=== PATIENT | female | born 1985 | race Caucasian/White ===

== ENCOUNTER 2022-02-16 06:43 | Day surgery (SDCO) | payer OTHER ==
[~2022-02-16] VITALS: Ht 162.6 cm; Wt 107.3 kg
[~2022-02-16 06:43] MED LIST: MIRALAX17 GM PO
[2022-02-16 07:47] LABS: BILIRUBIN NEGATIVE (NEGATIVE); BLOOD NEGATIVE Ery/uL (NEGATIVE); CLARITY CLEAR (CLEAR); COLOR YELLOW (YELLOW); GLUCOSE (U) NORMAL (NORMAL); LEUKOCYTES NEGATIVE Leu/uL (NEGATIVE); NITRITE NEGATIVE (NEGATIVE); PROTEIN NEGATIVE (NEGATIVE)
[2022-02-16 07:47] LABS: BASOPHIL 0.7 % (0-2); EOSINOPHIL 0.2 % (0-5); HCT 36.9 % (37.0-47.0); HGB 12.2 g/dl (12.5-16.0); LYMPHOCYTE 11.5 % (15-48); MCH 27.9 pg (25.0-31.0); MCHC 33.1 g/dL (32.0-36.0); MCV 84.2 fL (78.0-100.0); MONOCYTE 4.6 % (0-12); MPV 9.3 fL (6.0-9.5); NEUTROPHIL 82.6 % (41-80); NRBC 0; PLT 338 K/uL (150-400); RBC 4.38 M/uL (4.20-5.40); RDW 15.1 % (11.5-14.0); WBC 8.4 K/uL (4.0-10.5)
[2022-02-16 08:04] LABS: ALBUMIN 3.6 g/dL (3.4-5.0); BILIRUBIN - TOTAL 0.3 mg/dL (0.2-1.0); BUN/CREAT RATIO (CALC) 14.1 RATIO; CREATININE 0.71 mg/dL (0.51-0.95); GLOBULIN (CALCULATION) 3.7 g/dL; MAGNESIUM 1.9 mg/dL (1.8-2.4); POTASSIUM 3.6 mmol/L (3.5-5.1); TOTAL PROTEIN 7.3 g/dL (6.4-8.2)
[2022-02-16 08:25] LABS: CORONAVIRUS 2019 SARS-COV-2 NEGATIVE (NEGATIVE); INFLUENZA A NAA NEGATIVE (NEGATIVE)
[2022-02-16] MEDS ORDERED: EFFEXOR-XR 75 M75 MG PO (15:21)
[2022-02-17 06:39] LABS: BASOPHIL 0.2 % (0-2); EOSINOPHIL 0.1 % (0-5); HCT 33.1 % (37.0-47.0); HGB 10.6 g/dl (12.5-16.0); LYMPHOCYTE 13.8 % (15-48); MCH 27.5 pg (25.0-31.0); MPV 9.2 fL (6.0-9.5); NEUTROPHIL 80.4 % (41-80); NRBC 0; PLT 294 K/uL (150-400); RBC 3.85 M/uL (4.20-5.40); RDW 15.5 % (11.5-14.0); WBC 10.6 K/uL (4.0-10.5)
[2022-02-17 07:12] LABS: ALBUMIN 2.8 g/dL (3.4-5.0); BILIRUBIN - TOTAL 0.4 mg/dL (0.2-1.0); BUN/CREAT RATIO (CALC) 5.6 RATIO; CREATININE 0.71 mg/dL (0.51-0.95); GLOBULIN (CALCULATION) 3.1 g/dL; POTASSIUM 3.7 mmol/L (3.5-5.1); TOTAL PROTEIN 5.9 g/dL (6.4-8.2)
[2022-02-17] MEDS ORDERED: ONDANSETRON HCL4 MG PO (15:09)
[2022-02-17] MEDS ORDERED: NORCO 5-325 TA1 EACH PO (15:09)
== END 2022-02-17 15:30 | disposition home or self-care (01) ==
LOC: FER 06:43 → FMS 11:47
PROVIDERS: Internal Medicine; ADMIT Internal Medicine
DX: K80.12 Calculus of gallbladder with acute and chronic cholecystitis without obstruction (principal); K66.0 Peritoneal adhesions (postprocedural) (postinfection); E87.1 Hypo-osmolality and hyponatremia; R73.9 Hyperglycemia, unspecified; E66.01 Morbid (severe) obesity due to excess calories; Z20.822 Contact with and (suspected) exposure to COVID-19
CPT/HCPCS: 36415; 76705; 80053; 81003; 83036; 83735; 84145; 85025; G0378; J1100; J1170; J1644; J1650; J1885; J2250; J2405; J2543; J2704; J3010; J7030; J7120; U0002